=== PATIENT | female | born 1960 | race Asian ===

== ENCOUNTER 2020-03-15 01:14 | Emergency (ER) | payer OTHER, MEDICAID ==
[~2020-03-15] VITALS: Ht 165.1 cm; Wt 81.0 kg
[2020-03-15 01:17] VITALS: BP 161/105
[2020-03-15] MEDS ORDERED: ASPIRIN 81MG TABLET PO ONE (01:30)
[2020-03-15] MEDS ORDERED: NITROGLYCERIN 0.4MG TABLET SL SL PRN (01:30)
[2020-03-15 02:00] LABS: BASOPHILS % 0.6 % (0.0-2.0); EOSINOPHILS % 3.5 % (0.0-5.0); HEMATOCRIT. 40.9 % (36.0-48.0); HEMOGLOBIN. 13.6 g/dL (12.0-16.0); LYMPHOCYTES % 46.7 % (20.0-50.0); MEAN CORPUSCULAR HEMOGLOBIN 30.7 pg (28.0-32.0); MEAN CORPUSCULAR VOLUME 92.3 fL (81.0-99.0); MEAN PLATELET VOLUME 8.5 fl (7.4-10.4); MONOCYTES % 8.4 % (2.0-8.0); NEUTROPHILS % 40.8 % (40.0-76.0); PLATELET 184 x1000/uL (130-400); RED BLOOD CELL COUNT 4.42 mill/uL (4.2-5.4); RED CELL DISTRIBUTION WIDTH 12.7 % (11.6-14.6)
[2020-03-15 02:09] LABS: CHLORIDE 110 mEq/L (98-107)
== END 2020-03-15 03:29 | disposition home or self-care (01) ==
LOC: ER 01:14
DX: R07.89 Other chest pain (principal); F41.9 Anxiety disorder, unspecified; I10 Essential (primary) hypertension
CPT/HCPCS: 36415; 71045; 80053; 83880; 84484; 85025; 93005; 99285; Z7610

== ENCOUNTER 2020-08-07 02:33 | Inpatient (IN) | payer OTHER ==
[~2020-08-07] VITALS: Ht 175.3 cm; Wt 114.8 kg
[2020-08-07] VITALS (55 sets, daily range): BP systolic 92–157; BP diastolic 37–99
[2020-08-07] MEDS ORDERED: DILTIAZEM HCL 5MG/ML 5ML VIAL IV ONE (03:15)
[2020-08-07 03:28] LABS: CHLORIDE 109 mEq/L (98-107)
[2020-08-07 03:30] LABS: BASOPHILS % 0.7 % (0.0-2.0); EOSINOPHILS % 2.9 % (0.0-5.0); HEMATOCRIT. 39.3 % (36.0-48.0); LYMPHOCYTES % 47.5 % (20.0-50.0); MEAN CORPUSCULAR HEMOGLOBIN 30.9 pg (28.0-32.0); MEAN CORPUSCULAR VOLUME 93.3 fL (81.0-99.0); MEAN PLATELET VOLUME 8.2 fl (7.4-10.4); MONOCYTES % 9.7 % (2.0-8.0); NEUTROPHILS % 39.2 % (40.0-76.0); PLATELET 184 x1000/uL (130-400); RED BLOOD CELL COUNT 4.21 mill/uL (4.2-5.4); RED CELL DISTRIBUTION WIDTH 12.8 % (11.6-14.6)
[2020-08-07] MEDS ORDERED: MORPHINE SULFATE 4 MG/ML CPJ (NOT FOR IM USE) IV ONE (03:30)
[2020-08-07] MEDS ORDERED: DILTIAZEM HCL 60MG TABLET PO ONE (03:45)
[2020-08-07] MEDS ORDERED: DILTIAZEM HCL 125 MG in DEXT 5% WATER 100 ML IV ONE (04:15)
[2020-08-07] MEDS ORDERED: ACETAMINOPHEN 325MG TABLET PO PRN (08:30)
[2020-08-07] MEDS ORDERED: DEXTROSE 50% WATER 50ML SYRINGE IV PRN (08:30)
[2020-08-07] MEDS ORDERED: DILTIAZEM HCL 125 MG in DEXT 5% WATER 100 ML IV PRN (08:30)
[2020-08-07] MEDS ORDERED: DIGOXIN 500MCG/2ML AMP IV SCH (08:30)
[2020-08-07] MEDS ORDERED: ONDANSETRON HCL 4MG/2ML INJ IV PRN (08:30)
[2020-08-07] MEDS ORDERED: MORPHINE SULFATE 2 MG/ML CPJ (NOT FOR IM USE) IV PRN (08:30)
[2020-08-07] MEDS: METOPROLOL TARTRATE 50MG TABLET PO SCH ×2 (09:19→20:09)
[2020-08-07] MEDS: APIXABAN 5 MG TABLET PO SCH ×2 (09:19→17:44)
[2020-08-07] MEDS ORDERED: LINA290C PO (11:16)
[2020-08-07] MEDS ORDERED: BUPR150T3 PO (11:16)
[2020-08-07] MEDS ORDERED: TOPA25 MT (11:16)
[2020-08-07] MEDS ORDERED: LOSA25TA26 PO (11:16)
[2020-08-07] MEDS ORDERED: BLOOD SUGAR DIAGNOSTIC STRIP TEST SCH (11:30)
[2020-08-07] MEDS ORDERED: INSULIN LISPRO 100 UNITS/ML SUBCUT SCH (12:00)
[2020-08-07] MEDS ORDERED: LOSA50TA41 PO (12:48)
[2020-08-07] MEDS ORDERED: TOPI50TA24 PO (12:48)
[2020-08-07] MEDS ORDERED: LINA145C PO (12:48)
[2020-08-07] MEDS ORDERED: DOCU-272 PO (12:48)
[2020-08-07] MEDS ORDERED: BUPR-46 PO (12:48)
[2020-08-07] MEDS ORDERED: *PATIENT'S OWN MEDICATION STORAGE XX SCH (13:45)
[2020-08-07] MEDS ORDERED: BUPROPION HCL PO SCH (14:00)
[2020-08-07] MEDS ORDERED: MEDICATION NOT ON FORMULARY EA (Topiramate 1 TAB) PO SCH (17:00)
[2020-08-07] MEDS ORDERED: DIGOXIN 250MCG TABLET PO SCH (18:00)
[2020-08-07] MEDS ORDERED: HYDROCODONE/ACETAMINOPHEN 5/325MG TABLET PO PRN (19:45)
[2020-08-07 20:43] LABS: CLARITY URINE CLEAR (CLEAR); COLOR URINE YELLOW (YELLOW); KETONES URINE NEGATIVE (NEGATIVE); LEUKOCYTE ESTERASE URINE NEGATIVE (NEGATIVE); NITRITE URINE NEGATIVE (NEGATIVE); OCCULT BLOOD URINE NEGATIVE (NEGATIVE); PH URINE 5.5 (4.5-8.0); PROTEIN URINE NEGATIVE (NEGATIVE); SPECIFIC GRAVITY URINE 1.029 (1.005-1.030)
[2020-08-07] MEDS ORDERED: TOPIRAMATE 100MG TABLET PO SCH (21:00)
[2020-08-08] MEDS ORDERED: BUPROPION HCL 150MG TABLET XL 24HR PO SCH (09:00)
[2020-08-08] MEDS ORDERED: TOPIRAMATE 25MG TABLET PO SCH (09:00)
== END 2020-08-07 23:30 | disposition short-term general hospital (02) | DRG 308 ==
LOC: ER 02:33 → EDBEDREQSVC 05:39 → EDBEDREQTM 05:39 → ENRESERV 07:21 → MICUSO 08:11
PROVIDERS: ADMIT Internal Medicine; ATTEND Internal Medicine
DX: I48.0 Paroxysmal atrial fibrillation (principal); J96.00 Acute respiratory failure, unspecified whether with hypoxia or hypercapnia; D72.819 Decreased white blood cell count, unspecified; E66.9 Obesity, unspecified; E87.8 Other disorders of electrolyte and fluid balance, not elsewhere classified; F41.9 Anxiety disorder, unspecified; I11.9 Hypertensive heart disease without heart failure; Z98.84 Bariatric surgery status; Z68.37 Body mass index [BMI] 37.0-37.9, adult; Z79.899 Other long term (current) drug therapy; Z71.3 Dietary counseling and surveillance
CPT/HCPCS: 36415; 71045; 80053; 81003; 82962; 83880; 84439; 84443; 84484; 85025; 93005; 93306; 99291; J1160; J2270; J3490; J7060